=== PATIENT | male | born 1960 | race Caucasian/White ===

== ENCOUNTER → 2019-11-08 22:17 | Outpatient (CLI) | payer OTHER | END | disposition home or self-care (01) | LOC: D.LABREF 22:17 | PROVIDERS: ATTEND Podiatrist Foot & Ankle Surgery | DX: M86.672 Other chronic osteomyelitis, left ankle and foot (principal); E11.621 Type 2 diabetes mellitus with foot ulcer; L97.526 Non-pressure chronic ulcer of other part of left foot with bone involvement without evidence of necrosis ==

== ENCOUNTER 2020-03-09 05:14 | Day surgery (SDC) | payer OTHER ==
[~2020-03-09] VITALS: Ht 185.4 cm; Wt 83.0 kg
[~2020-03-09 05:14] MED LIST: FLOMAX0.4 MG PO; GLIPIZIDE10 MG PO; GLUCOPHAGE500 MG PO; HYDROCODON-ACE1 EA10 PO
[2020-03-09 05:40] LABS: HEMOGLOBIN 15.9 g/dL (13.5-17.5); MCHC 33.8 g/dL (31.0-37.0); MCV 85.6 fL (80.0-100.0); RBC 5.49 10x6/uL (4.20-6.10); RDW 15.9 % (11.5-14.5); WBC 12.1 10x3/uL (4.8-10.8)
[2020-03-09 06:08] LABS: CALC OSMOLALITY 275 mosm/kg (275-300); CALCIUM 8.8 mg/dL (8.5-10.1); CARBON DIOXIDE 28.6 mmol/L (21.0-32.0); CHLORIDE - SERUM 103 mmol/L (98-107); CREATININE - SERUM 0.8 mg/dL (0.6-1.3); GLUCOSE 146 mg/dL (74-106); POTASSIUM - SERUM 4.1 mmol/L (3.5-5.1); SODIUM 137 mmol/L (136-145); UREA NITROGEN 10 mg/dL (7-18); eGFR NON AFRICAN AMERICAN > 90 mL/min (90-120)
[2020-03-09 06:35] VITALS: BP 129/69; Ht 185.4 cm; Wt 83.0 kg
[2020-03-09] MEDS ORDERED: HYDROCODON-ACE1 EAC7 PO (08:32)
--- NOTE | 2020-03-09 09:29 | NUR ---
0923 IV DC'D. CATHETER TIP INTACT. NO BLEEDING AT SITE. BANDAID APPLIED. REVIEWED DISCHARGE INSTRUCTIONS WITH PT. QUESTIONS ANSWERED. PT VOICES UNDERSTANDING OF INSTRUCTIONS.
== END 2020-03-09 09:56 | disposition home or self-care (01) ==
LOC: D.OPS 05:14
PROVIDERS: Anesthesiology; ATTEND Podiatrist Foot & Ankle Surgery
DX: M86.172 Other acute osteomyelitis, left ankle and foot (principal)